=== PATIENT | female | born 1995 | race Caucasian/White ===

== ENCOUNTER 2016-08-15 12:17 | Emergency (ER) | payer MEDICAID ==
[~2016-08-15] VITALS: Ht 167.6 cm; Wt 84.5 kg
[~2016-08-15 12:17] MED LIST: FLUO10CA13 PO; MIRT15TA3 PO; ZIPR20CA2 PO
[2016-08-15] MEDS ORDERED: ACETAMINOPHEN 325 MG TABLET ONE (13:50)
[2016-08-15] MEDS ORDERED: ACETAMINOPHEN 325 MG TABLET PO ONE (14:00)
[2016-08-15 14:25] VITALS: BP 124/75
== END 2016-08-15 14:26 | disposition home or self-care (01) ==
LOC: ED 14:00
DX: R11.2 Nausea with vomiting, unspecified (principal); F32.9 Major depressive disorder, single episode, unspecified; J45.909 Unspecified asthma, uncomplicated; Z59.0 Homelessness
CPT/HCPCS: 99282; 99283

== ENCOUNTER 2016-08-30 12:15 | Emergency (ER) | payer MEDICAID ==
[~2016-08-30] VITALS: Ht 180.3 cm; Wt 85.0 kg
[2016-08-30 13:10] LABS: BLOOD UREA NITROGEN 11 mg/dL (7-18)
[2016-08-30 13:11] LABS: ACETAMINOPHEN < 2 mcg/mL (10-30)
[2016-08-30 13:24] LABS: DAU SCREEN DISCLAIMER
[2016-08-30 14:29] VITALS: BP 95/52
== END 2016-08-30 15:31 | disposition home or self-care (01) ==
LOC: ED 15:20
DX: F15.10 Other stimulant abuse, uncomplicated (principal); F41.1 Generalized anxiety disorder; F32.9 Major depressive disorder, single episode, unspecified; J45.909 Unspecified asthma, uncomplicated; F17.200 Nicotine dependence, unspecified, uncomplicated
CPT/HCPCS: 36415; 80048; 80307; 80329; 82040; 85025; 93005; G0480

== ENCOUNTER 2017-05-01 10:36 | Emergency (ER) | payer MEDICAID ==
[~2017-05-01] VITALS: Ht 175.3 cm; Wt 86.2 kg
[2017-05-01 10:38] VITALS: BP 120/84
== END 2017-05-01 12:24 | disposition home or self-care (01) ==
LOC: ED 12:14
DX: J20.9 Acute bronchitis, unspecified (principal); J45.909 Unspecified asthma, uncomplicated
CPT/HCPCS: 71020; 99284

== ENCOUNTER 2017-06-10 23:34 | Emergency (ER) | payer MEDICAID ==
[~2017-06-10] VITALS: Ht 172.7 cm; Wt 88.9 kg
[2017-06-10 23:36] VITALS: BP 128/84
[2017-06-11 00:37] LABS: HCG UR SG 1.033 (1.003-1.030)
[2017-06-11 00:44] LABS: CLUE CELLS NONE SEEN (NONE SEEN); WET PREP WBCS FEW (FEW)
[2017-06-11 00:45] LABS: CULTURE INDICATED? YES; MICROSCOPIC INDICATED
[2017-06-11] MEDS ORDERED: CEFTRIAXONE 250 MG IM ONE (01:30)
[2017-06-11] MEDS ORDERED: AZITHROMYCIN 500 MG TABLET PO ONE (01:30)
[2017-06-11] MEDS ORDERED: CEFTRIAXONE 250 MG ONE (01:31)
[2017-06-11] MEDS ORDERED: AZITHROMYCIN 500 MG TABLET ONE (01:31)
== END 2017-06-11 02:11 | disposition home or self-care (01) ==
LOC: ED 23:51
DX: A56.09 Other chlamydial infection of lower genitourinary tract (principal); A74.9 Chlamydial infection, unspecified; A54.03 Gonococcal cervicitis, unspecified; R10.2 Pelvic and perineal pain; J45.909 Unspecified asthma, uncomplicated; F17.210 Nicotine dependence, cigarettes, uncomplicated
CPT/HCPCS: 81001; 81025; 87086; 87210; 87491; 87591; 87808; 96372; 99284; J0696